=== PATIENT | male | born 2000 | race Caucasian/White ===

== ENCOUNTER 2022-12-27 09:23 | Emergency (ER) | payer SELFPAY ==
[2022-12-27] MEDS ORDERED: Lidocaine 1% with EPINEPHrine 1:100,000 50 ML MDV INJECT ONE (10:06)
[2022-12-27] MEDS ORDERED: Diphtheria,Pertussis(Acell),Tetanus Vaccine 0.5 ML Syringe IM ONE (10:57)
== END 2022-12-27 11:17 | disposition home or self-care (01) ==
LOC: JP.ED 09:23
DX: S61.211A Laceration without foreign body of left index finger without damage to nail, initial encounter (principal); Z23 Encounter for immunization; W26.0XXA Contact with knife, initial encounter
CPT/HCPCS: 12002; 90471; 90715; 99282-25